=== PATIENT | female | born 1950 | race Caucasian/White ===

== ENCOUNTER 2016-11-07 08:08 | Day surgery (SDC) | payer OTHER ==
[~2016-11-07] VITALS: Ht 167.6 cm; Wt 78.0 kg
[~2016-11-07 08:08] MED LIST: 0.9% Sodium Chloride 1,000 ML IV SCH; KEN25CR EXT; LEVO50TA83 PO; NAPR500T PO; Sodium Chloride LOK Flush 10 mL Syringe IV PRN; fentaNYL-PF 50 mCg/mL 2 mL Inj IVPUSH PRN
[2016-11-07 08:20] VITALS: BP 141/92; PULSE 96; RESP 16; O2SAT 97
[2016-11-07] MEDS ORDERED: PEDI1TAB52 PO (08:23)
[2016-11-07 09:29] VITALS: BP 98/45; PULSE 79; RESP 14; O2SAT 95
--- NOTE | 2016-11-07 09:58 | ENDO ---
[address] [address] ENDOSCOPY PROCEDURE PATIENT: MICHELLE QUIÑONES : 1950 MR#: [id number] ADMIT: 11/07/2016 JOB ID: [id number] DATE: 11/07/2016 PROCEDURE: Colonoscopy with hot snare polypectomy. INDICATIONS: A 66-year-old female with a personal history of adenomatous colon polyp returning for surveillance. EQUIPMENT: PCF H 190 L. SEDATION: 1. 4 mg Versed. 2. 100 mcg fentanyl. COMPLICATIONS: None identified. BOWEL PREPARATION: Excellent. PROCEDURAL INFORMATION: After the risks and benefits were explained, written and verbal informed consent was obtained. The patient was brought into the endoscopy suite and placed into the left lateral decubitus position. Sedation was achieved using the above-stated medications with the addition of oxygen via nasal cannula. Digital rectal examination was accomplished. No significant pathology appreciated. The scope introduced into the rectum and advanced to the cecum as identified by the appendiceal orifice and ileocecal valve. The scope was slowly withdrawn to carefully examine the mucosa for any defects or lesions. Retroflexed views were avoided in the rectum. Multiple direct views were made through the dentate line for exclusion of pathology. The colon was decompressed. The scope removed from the patient who tolerated the procedure well. FINDINGS: In the cecum there was an approximately 7 mm sessile polyp removed with hot snare. In the sigmoid there was a 6 mm polyp removed with hot snare. No other significant pathology throughout. ENDOSCOPIC DIAGNOSES: Colon polyps x2. RECOMMENDATIONS: 1. Await histopathology. 2. Repeat colonoscopy five years.
[2016-11-07 10:00] VITALS: BP 111/56; PULSE 69; RESP 16; O2SAT 98
--- NOTE | 2016-11-08 13:40 | PATH ---
SURGICAL PATHOLOGY Attending Physician:Rosina Kaiser CASE STATUS: Signed Out PATIENT NAME: MICHELLE QUIÑONES PID: [id number] : 1950 DATE COLLECTED:11/07/2016 18:36 SPECIMEN: 1: Colon, Biopsy 2: Colon, Biopsy CLINICAL HISTORY: 1). CECUM POLYP 2). SIGMOID COLON POLYP FINAL DIAGNOSIS: 1.CECUM POLYP: TUBULAR ADENOMA INVOLVING ALL BIOPSY FRAGMENTS. 2.SIGMOID COLON POLYP: TUBULAR ADENOMA. ICD10 D12.0 GROSS DESCRIPTION: The specimen is received in two formalin filled containers labeled with the patient's name. 1). The specimen is sublabeled "cecum polyp" and consists of multiple portions of tissue which aggregate to 0.7 x 0.7 x 0.4 CM. The specimen is entirely submitted in cassettes 1A. 2). The specimen is sublabeled "sigmoid colon polyp" and consists of a 0.5 x 0.5 x 0.4 CM portion of tissue which is entirely submitted in cassette 2A. 11/07/2016 DAC MICRO DESCRIPTION: See diagnosis. ICD-9 CODES: CPT CODES: 1: 03833 2: 23034 Electronically Signed Out Jesu Spring MD [facility] Pathology [facility] [address], [place] [address] Technical component performed at [facility], [facility] [address], [address]
== END 2016-11-07 23:59 | disposition home or self-care (01) ==
LOC: END 08:08
PROVIDERS: ATTEND Internal Medicine Gastroenterology
DX: Z12.11 Encounter for screening for malignant neoplasm of colon (principal); D12.0 Benign neoplasm of cecum; D12.5 Benign neoplasm of sigmoid colon; Z86.010 Personal history of colon polyps; Z83.71 Family history of colonic polyps; E03.9 Hypothyroidism, unspecified; M54.2 Cervicalgia
CPT/HCPCS: 45385; G0500; J7030